=== PATIENT | male | born 1965 | race Caucasian/White ===

== ENCOUNTER 2017-01-14 05:55 | Emergency (ER) | payer OTHER ==
[~2017-01-14 05:55] MED LIST: LOSARTAN POTAS100 M1 PO; PRILOSEC OTC20 M1 PO
--- NOTE | 2017-01-14 05:59 | ED NECK/BACK PAIN COMPLAINT ---
History of Present Illness General Chief Complaint: Low Back Pain/Injury Stated Complaint: LOWER BACK PAIN Source: patient Exam Limitations: no limitations Vital Signs & Intake/Output Vital Signs & Intake/Output Vital Signs Date Time Temp Pulse Resp B/P Pulse O2 O2 Flow FiO2 Ox Delivery Rate 01/14 0804 98.0 84 22 130/93 96 Room Air 01/14 0603 97.9 86 18 141/89 98 Reconcile Medications Amlodipine Besylate 2.5 MG TABLET 1 TAB PO DAILY HTN (Reported) Cyclobenzaprine HCl 10 MG TABLET 1 TAB PO TID PRN MUSCLE SPASMS Folic Acid 1 MG TABLET 1 TAB PO DAILY (Reported) Hydrocodone/Acetaminophen ([place] 5-325 Tablet) 5 MG-325 MG TABLET 1-2 TAB PO Q6 BACK PAIN Losartan Potassium 100 MG TABLET 1 TAB PO DAILY HTN (Reported) Omeprazole Magnesium (Prilosec Otc) 20 MG TABLET.DR 1 TAB PO DAILY GERD ( Reported) Prednisone (Deltasone) 20 MG TABLET 2 TAB PO DAILY BACK PAIN BEGIN TOMORROW Triage Nurses Notes Reviewed? yes Onset: Gradual Duration: week(s): (FEW) Timing: recent history Location: lumbar spine HPI: This is a 51-year-old male presents to the ER for chief complaint of ongoing low back issues for the past several months. He states low back pain is been getting worse and currently complains of severe lower back spasms which are worse with change in motion. He's been following up with a chiropractor who ordered an x-ray. X-ray shows some degenerative changes of his lower back. No history of previous trauma or surgeries. He states nothing that he is taking at home has given him any relief. Denies any difficulty with bowel or bladder. Denies any numbness tingling or weakness in the legs. (ETHEL LOPEZ MD) Allergies Coded Allergies: No Known Allergies (01/14/17) (JENNIFER MCDONALD,LAZ Mix) Past History Travel History Traveled to [place] past 21 day No Medical History Any Pertinent Medical History? see below for history Cardiovascular: hypertension Gastrointestinal: HERNIA Surgical History Surgical History: non-contributory Psychosocial History What is your primary language Malay Family History Hx Contributory? No (ETHEL LOPEZ MD) Review of Systems Review of Systems Constitutional: Denies: chills, fever. Eyes: Reports: no symptoms. Ears, Nose, Throat, Mouth: Reports: no symptoms. Respiratory: Denies: cough. Cardiovascular: Denies: chest pain. Gastrointestinal/Abdominal: Reports: no symptoms. Musculoskeletal: Reports: back pain, muscle pain, muscle stiffness. Denies: neck pain. Skin: Reports: no symptoms. Neurological/Psychological: Reports: no symptoms. All Other Systems: Reviewed and Negative (ETHEL LOPEZ MD) Physical Exam Physical Exam General Appearance: well developed/nourished, alert, awake, mild distress, moderate distress, obese Head: atraumatic Eyes: Bilateral: PERRL, EOMI. Ears, Nose, Throat, Mouth: hearing grossly normal Neck: normal inspection, supple, full range of motion Respiratory: normal breath sounds Cardiovascular: regular rate/rhythm Peripheral Pulses: 2+ radial (R), 2+ radial (L) Back: normal inspection, TENDER OVER LOWER PARALUMBAR SPINAL MUSCLES Extremities: normal range of motion Neurologic/Psych: awake, alert, oriented x 3, normal mood/affect Skin: intact, normal color, warm/dry (ETHEL LOPEZ MD) Progress Plan of Care: Current Medications Sig/Robert Start time Last Medication Dose Stop Time Status Admin Dexamethasone 8 MG ONCE ONE 01/14 615 UNVr (Decadron) 01/15 616 Diazepam 10 MG ONCE ONE 01/14 615 UNVr (Valium) 01/15 616 Ketorolac 60 MG ONCE ONE 01/14 615 UNVr Tromethamine 01/15 616 (Toradol) Hand-Off Endorsed To: LAZ PERDOMO MD Endorsed Time: 0700 Pending: other (REEVALUATION) (ETHEL LOPEZ MD) Differential Diagnosis: cauda equina syn, herniated disc, myofascial strain, sciatica Comments: 01/14/2017 8:38:39 AM patient signed out to me by Dr. Lopez at shift global director air and climate change. randall is feeling better and states he is able to move much more comfortably. I feel he is stable for discharge at this time. He has abdominal hernia surgery scheduled for tomorrow so I will avoid nonsteroidal anti-inflammatories. (JENNIFER MCDONALD,LAZ Mix) Departure Departure Condition: Stable Referrals: BROOKS MCDONALD,MYLES Leonard (PCP/Family) Departure Forms: Customer Survey General Discharge Information PA/SUPERVISOR ROAD ADMINISTRATOR Co-Sign Statement Statement: ED Attending supervision documentation- [] I saw and evaluated the patient. I have also reviewed all the pertinent lab results and diagnostic results. I agree with the findings and the plan of care as documented in the PA's/SUPERVISOR ROAD ADMINISTRATOR's documentation. [] I have reviewed the ED Record and agree with the PA's/SUPERVISOR ROAD ADMINISTRATOR's documentation. [] Additions or exceptions (if any) to the PAs/SUPERVISOR ROAD ADMINISTRATOR's note and plan are summarized below: [] (SANDY MCDONALD,ETHEL) Departure Disposition: HOME OR SELF CARE Clinical Impression Primary Impression: Acute low back pain Qualifiers: Back pain laterality: bilateral Sciatica presence: without sciatica Qualified Code: M54.5 - Low back pain Additional Instructions: Flexeril as needed for muscle spasms. Prednisone as prescribed. Vicodin as needed for pain. Rest, no exertional heavy lifting. Contact her surgeon today regarding your surgery tomorrow. Notify your primary care doctor of this emergency department visit and treatment plan and arrange for follow-up appointment later this week. Return if any concerns or sudden worsening. Thank you for choosing the [facility] for your care. It was a pleasure to serve you today. Laz Perdomo M.D. [facility] Prescriptions: Current Visit Scripts Prednisone (Deltasone) 2 TAB PO DAILY #8 TAB BEGIN TOMORROW Hydrocodone/Acetaminophen ([place] 5-325 Tablet) 1-2 TAB PO Q6 #16 TAB Cyclobenzaprine HCl 1 TAB PO TID PRN MUSCLE SPASMS #21 TAB (JENNIFER MCDONALD,LAZ Mix)
[2017-01-14] MEDS ORDERED: FOLIC ACID1 M1 PO (06:20)
[2017-01-14] MEDS ORDERED: AMLODIPINE BES2.5 M1 PO (06:20)
[2017-01-14 08:04] VITALS: BP 130/93
[2017-01-14] MEDS ORDERED: NORCO 5-325 TA1 EACH PO (08:43)
[2017-01-14] MEDS ORDERED: DELTASONE20 MG PO (08:43)
[2017-01-14] MEDS ORDERED: CYCLOBENZAPRINE10 M1 PO (08:43)
== END 2017-01-14 08:59 ==
LOC: ERH 05:55
DX: M54.5 Low back pain (principal); R52 Pain, unspecified
CPT/HCPCS: 96372; J1100; J1885; J3360

== ENCOUNTER → 2017-01-15 | Day surgery (SDC) | payer OTHER ==
[~2017-01-15] VITALS: Ht 180.3 cm; Wt 130.2 kg
[~2017-01-15] MED LIST changes: +AMLODIPINE BES2.5 M1 PO; +CYCLOBENZAPRINE10 M1 PO; +DELTASONE20 MG PO; +FOLIC ACID1 M1 PO; +NORCO 5-325 TA1 EACH PO
--- NOTE | 2017-01-15 12:31 | Operative Report ---
Operative/Inv Procedure Report Surgery Date: 01/15/17 Name of Procedure: Open ventral hernia repair with mesh Pre-Operative Diagnosis: Ventral hernia Post-Operative Diagnosis: Same Estimated Blood Loss: scant Surgeon/Reconcilement Clerk: GILBERT MCDONALD,KATLIN Shaw/Efra DESIR Anesthesia: laryngeal mask airway Implants: 6.4 cm ventral X Operative/Procedure Note Note: After consent he is brought to the operating room laid supine. His abdomen was prepped and draped. The skin above the umbilicus was infiltrated with local anesthesia over the bulge. Transverse incision made sharply. Subcutaneous tissues were dissected with cautery. We encountered a fat-containing hernia sac which was circumferentially dissected down to level of fascia. There was a transverse slit in the fascia just above the umbilicus. The area was delineated with cautery. The contents were then reduced. The size of the defect combined with his morbid obesity warranted mesh repair. I created preperitoneal planes circumferentially a blunt fashion. Palpation inferiorly revealed a previously unknown tiny umbilical hernia. The contents were reduced. I placed a 6.4 cm ventral X mesh into the cavity. It was unraveled below the defect. Placement was performed to ensure coverage of the umbilical site. We then closed the defect over the mesh while incorporating the anterior portion of it to keep it centered. This was accomplished with 0 Maxon sutures in interrupted fashion. The wound was then irrigated with saline. The incision closed in layers of 30 and 4-0 Vicryl sutures. Steri-Strips and sterile dressing applied. Sponge and needle counts are correct CC: BROOKS MCDONALD,MYLES Leonard
== END ==
LOC: STS 01:42
DX: K43.9 Ventral hernia without obstruction or gangrene (principal); E66.01 Morbid (severe) obesity due to excess calories; I10 Essential (primary) hypertension; E78.00 Pure hypercholesterolemia, unspecified; Z86.19 Personal history of other infectious and parasitic diseases
CPT/HCPCS: J0131; J0690; J2250